=== PATIENT | female | born 1990 | race Caucasian/White ===

== ENCOUNTER 2017-08-05 15:52 | Emergency (ER) | payer OTHER ==
--- NOTE | 2017-08-05 16:06 | EDM.PDOC ---
ED HPI GENERAL MEDICAL PROBLEM - General Chief Complaint: Headache Stated Complaint: HEADACHE Time Seen by Provider: 08/05/17 15:55 Source of Information: Reports: Patient History Limitations: Reports: No Limitations - History of Present Illness INITIAL COMMENTS - FREE TEXT/NARRATIVE: HISTORY AND PHYSICAL: History of present illness: 26-year-old female presented emergency department with chief complaint of migraine type of headache starting 2 weeks ago. Patient states 2 weeks ago started making urine, which she states started on the left side of her head. The following morning she woke up nauseous with associated vomiting. She took Aleve which seemed to make it better. However, since that she's had a constant throbbing pain predominantly on the left side radiating to the left thigh. She's had some associated nausea as well as blurred vision. Has a history of migraines but none for 2 years. At one time was on medications such as Topamax for these migraines. She denied visual changes with her migraines and this is a new symptom. She initially was seeing a neurologist at [facility] in [place]. She denies any recent changes in her diet or trauma to her head. States that ham is only known triggering factor. Recently moved here from [place] and does not have primary care physician here or see a neurologist. Review of systems: As per history of present illness and below otherwise all systems reviewed and negative. Past medical history: As per history of present illness and as reviewed below otherwise noncontributory. Surgical history: As per history of present illness and as reviewed below otherwise noncontributory. Social history: No reported history of drug or alcohol abuse. Family history: As per history of present illness and as reviewed below otherwise noncontributory. Physical exam: HEENT: Atraumatic, normocephalic, pupils reactive, negative for conjunctival pallor or scleral icterus, mucous membranes moist, throat clear, neck supple, nontender, trachea midline. Lungs: Clear to auscultation, breath sounds equal bilaterally, chest nontender. Heart: S1S2, regular, negative for clicks, rubs, or JVD. Abdomen: Soft, nondistended, nontender. Negative for masses or hepatosplenomegaly. Negative for costovertebral tenderness. Pelvis: Stable nontender. Genitourinary: Deferred. Rectal: Deferred. Extremities: Atraumatic, negative for cords or calf pain. Neurovascular unremarkable. Neuro: Awake, alert, oriented. Cranial nerves II through XII unremarkable. Cerebellum unremarkable. Motor and sensory unremarkable throughout. Exam nonfocal. Diagnostics: [] Therapeutics: 1 L normal saline 1, diphenhydramine 25 mg IV 1, Toradol 30 mg IV 1, Reglan 10 mg IV 1 Impression: Migraine with visual changes Plan: After above, remaining patient felt significantly better and her headache completely resolved. I did talk to her about starting possibly Topamax, but she would rather wait and see a primary care doctor and neurologist first. I did give her information as to primary care provider and told her to call immediately, as well as follow-up with a neurologist. All information was given to the patient. She was discharged in good condition with instructions. Return to emergency department if she had any new or worsening symptoms. Definitive disposition and diagnosis as appropriate pending reevaluation and review of above. headache Pain Score (Numeric/FACES): 7 - Related Data Allergies Allergy/AdvReac Type Severity Reaction Status Date / Time amitriptyline Allergy Headache Verified 08/05/17 16:06 dexamethasone Allergy Hives Verified 08/05/17 16:06 Home Meds: Home Meds Norethindrone [Norethindrone Acetate] 5 mg PO DAILY 08/05/17 [History] ED ROS GENERAL - Review of Systems Review Of Systems: ROS reveals no pertinent complaints other than HPI. ED EXAM, GENERAL - Physical Exam Exam: See Below Course - Vital Signs Last Recorded V/S: Last Vital Signs Temp 97.3 F 08/05/17 16:04 Pulse 86 08/05/17 16:04 Resp 20 08/05/17 16:04 BP 126/83 08/05/17 16:04 Pulse Ox 97 08/05/17 16:04 - Orders/Labs/Meds Meds: Medications Discontinued Medications Generic Name Dose Route Start Last Admin Trade Name Freq PRN Reason Stop Dose Admin Dihydroergotamine Mesylate 1 mg 08/05/17 16:23 08/05/17 16:40 Dhe 45 IVPUSH 08/05/17 16:24 Not Given ONETIME ONE Diphenhydramine HCl 25 mg 08/05/17 16:31 08/05/17 16:45 Benadryl IVPUSH 08/05/17 16:32 25 mg ONETIME ONE Administration Sodium Chloride 1,000 mls @ 999 mls/hr 08/05/17 16:19 08/05/17 16:42 Normal Saline IV 08/05/17 17:19 999 mls/hr STAT ONE Administration Ketorolac Tromethamine 30 mg 08/05/17 16:19 08/05/17 16:42 Toradol IVPUSH 08/05/17 16:20 30 mg ONETIME ONE Administration Metoclopramide HCl 10 mg 08/05/17 16:24 08/05/17 16:42 Reglan IV 08/05/17 16:25 10 mg ONETIME ONE Administration Departure - Departure Time of Disposition: 17:32 Disposition: Home, Self-Care 01 Condition: Good Clinical Impression: Migraine Qualifiers: 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 This information is to outline your options for follow-up care. We provide all patients seen in our emergency department with a follow-up referral. The need for follow-up, as well as the timing and circumstances, are variable depending upon the specifics of your emergency department visit. If you don't have a primary care physician on staff, we will provide you with a referral. We always advise you to contact your personal physician following an emergency department visit to inform them of the circumstance of the visit and for follow-up with them and/or the need for any referrals to a consulting specialist. The emergency department will also refer you to a specialist when appropriate. This referral assures that you have the opportunity for follow-up care with a specialist. All of these measure are taken in an effort to provide you with optimal care, which includes your follow-up. Under all circumstances we always encourage you to contact your private physician who remains a resource for coordinating your care. When calling for follow-up care, please make the office aware that this follow-up is from your recent emergency room visit. If for any reason you are refused follow-up, please contact the [facility] Emergency Department at and asked to speak to the emergency department charge nurse. [facility] [address] [place] [id number] [address] [facility] Specialty Care - Neurology Professional Building [address] [place] [address], [address] [place] [address] 1. Please above numbers to schedule appointment with her primary care provider. Be sure to tell them that you were seen in the emergency department and they requested you be seen as soon as possible. 2. Return to emergency department if any new or worsening symptoms.
[2017-08-05] MEDS ORDERED: Sodium Chloride 0.9% 1,000 ML IV ONE (16:19)
[2017-08-05] MEDS ORDERED: Ketorolac 30 MG/ML SDV IVPUSH ONE (16:19)
[2017-08-05] MEDS ORDERED: Dihydroergotamine 1 MG/ML SDV IVPUSH ONE (16:23)
[2017-08-05] MEDS ORDERED: Metoclopramide 10 MG/2 ML SDV IV ONE (16:24)
[2017-08-05] MEDS ORDERED: diphenhydrAMINE 50 MG/ML SDV IVPUSH ONE (16:31)
== END 2017-08-05 17:50 | disposition home or self-care (01) ==
LOC: MW.ED 15:52
DX: G43.B1 Ophthalmoplegic migraine, intractable (principal); Z88.8 Allergy status to other drugs, medicaments and biological substances
CPT/HCPCS: 96361; 96374; 96375; 99283; J1200; J1885; J2765; J7040